=== PATIENT | female | born 1990 | race African-American/Black ===

== ENCOUNTER 2019-05-12 19:46 | Emergency (ER) | payer SELFPAY ==
[~2019-05-12] VITALS: Ht 162.6 cm; Wt 57.6 kg
[~2019-05-12 19:46] MED LIST: BENADRYL25 MG ORAL; HYDROCORTISONE28 G5 TP; IBUPROFEN600 MG ORAL; NKM; PREDNISONE20 MG ORAL
--- NOTE | 2019-05-12 19:50 | NUR ---
ED Nurse Note: AMBULATED TO ED C/O LEFT UPPER ABDOMINAL PAIN X 0400. PT REPORTS BLOOD IN STOOL X 2. PT AO4. NAD. AMBULATORY WITH STEADY GAIT. PT CHANGED INTO GOWN; ATTACHED TO MONITOR. BED LOCKED AT LOWEST POSITION; SIDE RAILS RAISED. WILL CONTINUE TO MONITOR.
[2019-05-12 20:00] VITALS: BP 98/52
[2019-05-12] MEDS ORDERED: Dicyclomine HCl 10mg/5ml oral soln ORAL ONE (20:00)
--- NOTE | 2019-05-12 20:00 | NUR ---
ED Nurse Note: IV ACCESS ESTABLISHED. BLOOD AND URINE COLLECTED; SENT DOWN TO LAB. FAMILY AT BEDSIDE. PATIENT MEDICATED; TOLERATED WELL.
[2019-05-12 20:16] LABS: EOSINOPHILS % (AUTO) 0.3 % (0.0-3.0); HEMATOCRIT 41.4 % (37.0-47.0); HEMOGLOBIN 14.3 G/DL (12.0-16.0); LYMPHOCYTES % (AUTO) 27.5 % (20.0-45.0); MEAN CORPUSCULAR VOLUME 90 FL (80-99); MONOCYTES % (AUTO) 5.7 % (1.0-10.0); NEUTROPHILS % (AUTO) 65.5 % (45.0-75.0); PLATELET COUNT 205 K/UL (150-450); RED BLOOD COUNT 4.59 M/UL (4.20-5.40); RED CELL DISTRIBUTION WIDTH 11.6 % (11.6-14.8); WHITE BLOOD COUNT 10.9 K/UL (4.8-10.8)
[2019-05-12 20:30] LABS: APPEARANCE,URINE CLEAR; BILIRUBIN, URINE NEGATIVE (NEGATIVE); COLOR,URINE PALE YELLOW; GLUCOSE, URINE (UA) NEGATIVE (NEGATIVE); KETONES,URINE NEGATIVE (NEGATIVE); LEUKOCYTE ESTERASE ,URINE NEGATIVE (NEGATIVE); NITRITE,URINE NEGATIVE (NEGATIVE); PH,URINE 6 (4.5-8.0); PROTEIN,URINE NEGATIVE (NEGATIVE); UROBILINOGEN,URINE 1 MG/DL (0.0-1.0)
[2019-05-12 20:38] LABS: ANION GAP 10 mmol/L (5-15); BLOOD UREA NITROGEN 9 mg/dL (7-18); CARBON DIOXIDE 28 MMOL/L (21-32); CHLORIDE 103 MMOL/L (98-107); CREATININE 0.8 MG/DL (0.55-1.30); POTASSIUM 3.5 MMOL/L (3.5-5.1); SODIUM 140 MMOL/L (136-145)
[2019-05-12 20:42] LABS: ALANINE AMINOTRANSFERASE 39 U/L (12-78); ALBUMIN 4.4 G/DL (3.4-5.0); ALBUMIN/GLOBULIN RATIO 1.2 (1.0-2.7); ALKALINE PHOSPHATASE 60 U/L (46-116); ASPARTATE AMINO TRANSFERASE 24 U/L (15-37); BILIRUBIN,TOTAL 0.3 MG/DL (0.2-1.0)
--- NOTE | 2019-05-12 21:14 | Emergency Room Report ---
History of Present Illness General Chief Complaint: Abdominal Pain Source: Patient Present Illness HPI 29-year-old female with no symptom past history here complaining of 2 episodes of blood in her stool today. Patient reports the first 1 was this morning is a scant amount of fresh blood came out. Denies any hemorrhoids. Denies any syncope. Also complains after she worked out lifting heavy weights at the gym she also noticed little more blood in her stool. Denies history of constipation , denies diarrhea, generalized abdominal pain, nausea vomiting. Complains of same onset of a left upper quadrant abdominal pain which has now resolved. Rating pain 5 out of 10. Denies any acid reflux, nausea vomiting. Denies eating acidic and spicy food. Denies tobacco smoke, alcohol intake. Denies recent travel, fever and chills. Reports that she often uses marijuana. Sitting comfortably with stable vital signs. Denies upper respiratory infection symptoms. Denies urinary symptoms. Allergies: Coded Allergies: No Known Allergies (Unverified , 02/25/14) Patient History Past Medical History: see triage record Past Surgical History: none Pertinent Family History: none Social History: Reports: drug use - Marijuana use Last Menstrual Period: 05/05/19 Now: No Immunizations: UTD Reviewed Nursing Documentation: PMH: Agreed; PSxH: Agreed Nursing Documentation-PMH Past Medical History: No History, Except For Review of Systems All Other Systems: negative except mentioned in HPI Physical Exam Vital Signs Date Time Temp Pulse Resp B/P (MAP) Pulse Ox O2 Delivery O2 Flow Rate FiO2 05/12/19 19:48 98.1 63 19 98/52 (67) 96 Room Air Sp02 EP Interpretation: reviewed, normal General Appearance: no apparent distress, alert, GCS 15, non-toxic Head: normocephalic, atraumatic Eyes: bilateral eye normal inspection, bilateral eye PERRL ENT: hearing grossly normal, normal pharynx, no angioedema, normal voice Neck: full range of motion, supple, thyroid normal, supple/symm/no masses Respiratory: chest non-tender, lungs clear, normal breath sounds, no rhonchi, no respiratory distress, no retraction, no wheezing, speaking full sentences Cardiovascular #1: regular rate, rhythm, no edema, no murmur, normal capillary refill Gastrointestinal: non tender, soft, no mass, no peritonitis, no bruit, non- distended, no guarding, no hernia, no pulsatile mass, no rebound Rectal: deferred Genitourinary: no CVA tenderness Musculoskeletal: back normal, normal range of motion, no calf tenderness Neurologic: alert, motor strength/tone normal, oriented x3, sensory intact, responsive, speech normal Psychiatric: judgement/insight normal, memory normal, mood/affect normal, no suicidal/homicidal ideation Skin: no rash Lymphatic: no adenopathy Medical Decision Making PA Attestation Diagnosis and treatment plans were reviewed and discussed with my supervising physician Dr. Crocker Diagnostic Impression: Primary Impression: Colitis Additional Impressions: Gastritis Blood in stool ER Course 29-year-old female with no symptom past history here complaining of 2 episodes of blood in her stool today. Patient reports the first 1 was this morning is a scant amount of fresh blood came out. Denies any hemorrhoids. Denies any syncope. Also complains after she worked out lifting heavy weights at the gym she also noticed little more blood in her stool. Denies history of constipation , denies diarrhea, generalized abdominal pain, nausea vomiting. Complains of same onset of a left upper quadrant abdominal pain which has now resolved. Rating pain 5 out of 10. Denies any acid reflux, nausea vomiting. Denies eating acidic and spicy food. Denies tobacco smoke, alcohol intake. Denies recent travel, fever and chills. Reports that she often uses marijuana. Sitting comfortably with stable vital signs. Denies upper respiratory infection symptoms. Denies urinary symptoms. Ddx considered but are not limited to: Gastritis, gastric ulcer, peptic ulcer, duodenal ulcer, internal hemorrhoid, external hemorrhoid, esophagitis, esophageal tear, colitis Vital signs: are WNL, pt. is afebrile H&PE are most consistent with: Gastritis and colitis ORDERS: CBC, CMP, UA, tox screen, urine test, lipase, PT and PTT, omeprazole, dicyclomine, ED INTERVENTIONS: NS bolus, Zofran, Pepcid, dicyclomine DISCHARGE: At this time pt. is stable for d/c to home. Will provide printed patient care instructions, and any necessary prescriptions. Care plan and follow up instructions have been discussed with the patient prior to discharge. Patient to avoid strenuous physical activity for few days also follow-up primary care provider for referral to roof slater for endoscopy. Increase oral hydration. If continues to have scant amount of blood coming out likely return to the emergency room. At this time patient is stable, with stable vital signs, and labs within normal limits. Further investigation such as stool culture, ova and parasite, further imaging to be done by primary care doctor. Last Vital Signs Date Time Temp Pulse Resp B/P (MAP) Pulse Ox O2 Delivery O2 Flow Rate FiO2 05/12/19 20:00 98.1 63 19 98/52 96 Room Air Status: improved Disposition: HOME, SELF-CARE Condition: Stable Referrals: NOT CHOSEN IPA/MD,REFERRING (PCP) Patient Instructions: Abdominal Pain, Adult, Colitis, Gastritis, Adult Additional Instructions: Patient to avoid strenuous physical activity for few days also follow-up primary care provider for referral to roof slater for endoscopy. Increase oral hydration. If continues to have scant amount of blood coming out likely return to the emergency room. At this time patient is stable, with stable vital signs, and labs within normal limits. Further investigation such as stool culture, ova and parasite, further imaging to be done by primary care doctor. Marline Callahan May 12, 2019 21:14
[2019-05-12] MEDS ORDERED: OMEPRAZOLE20 M3 ORAL (21:15)
[2019-05-12] MEDS ORDERED: DICYCLOMINE HCL10 MG ORAL (21:15)
[2019-05-12 21:20] VITALS: BP 98/52
--- NOTE | 2019-05-12 21:20 | NUR ---
ER DISCHARGE NOTE: Patient is cleared to be discharged per ERMD, pt is aox4, on room air, with stable vital signs. pt was given dc and prescription instructions, pt was able to verbalize understanding, pt id band and iv site removed without complications. pt is able to ambulate with steady gait. pt took all belongings.
== END 2019-05-12 21:20 | disposition home or self-care (01) ==
LOC: EMR 20:00
DX: K52.9 Noninfective gastroenteritis and colitis, unspecified (principal); K92.1 Melena; F12.10 Cannabis abuse, uncomplicated
CPT/HCPCS: 36415; 80053; 80307; 81003; 81025; 83690; 85025; 85610; 85730; 96361; 96374; 96375; 99284; J2405; J7030; S0028